=== PATIENT | male | born 1960 | race African-American/Black ===

== ENCOUNTER 2021-09-09 06:52 | Emergency (ER) | payer MEDICAID ==
[~2021-09-09] VITALS: Ht 175.3 cm; Wt 115.9 kg
[2021-09-09 08:56] LABS: CHLORIDE 106 mEq/L (98-107)
[2021-09-09 08:57] LABS: BASOPHILS % 0.8 % (0.0-2.0); EOSINOPHILS % 2.3 % (0.0-5.0); HEMATOCRIT. 44.5 % (42.0-52.0); HEMOGLOBIN. 14.6 g/dL (14.0-18.0); LYMPHOCYTES % 28.9 % (20.0-50.0); MEAN CORPUSCULAR HEMOGLOBIN 27.8 pg (28.0-32.0); MEAN PLATELET VOLUME 10.1 fl (7.4-10.4); MONOCYTES % 7.3 % (2.0-8.0); NEUTROPHILS % 60.7 % (40.0-76.0); PLATELET 117 x1000/uL (130-400); RED BLOOD CELL COUNT 5.24 mill/uL (4.7-6.1); RED CELL DISTRIBUTION WIDTH 16.2 % (11.6-14.6)
[2021-09-09] MEDS ORDERED: TETRACAINE 0.5% OPHTH DROPS 4ML BOTHEYE ONE (09:45)
[2021-09-09] MEDS ORDERED: FLUORESCEIN SODIUM 1MG/STRIP BOTHEYE ONE (09:45)
[2021-09-09] MEDS ORDERED: AMLO5TAB88 MT (10:39)
[2021-09-09] MEDS ORDERED: AMLODIPINE 5MG TABLET PO NR (10:45)
[2021-09-09 11:01] VITALS: BP 198/142
== END 2021-09-09 11:12 | disposition home or self-care (01) ==
LOC: ER 06:52
DX: H25.812 Combined forms of age-related cataract, left eye (principal); I10 Essential (primary) hypertension
CPT/HCPCS: 36415; 71045; 80053; 83880; 84484; 85025; 99285

== ENCOUNTER 2023-02-05 17:10 | Emergency (ER) | payer MEDICAID ==
[~2023-02-05] VITALS: Ht 175.3 cm; Wt 111.1 kg
[~2023-02-05 17:10] MED LIST: AMLO5TAB88 MT
[2023-02-05 17:41] VITALS: BP 238/105; PULSE 84; RESP 16; TEMP 98.5; O2SAT 98
[2023-02-05] MEDS ORDERED: FLUT9.9S BOTHNSTRLS (19:38)
== END 2023-02-05 19:55 | disposition home or self-care (01) ==
LOC: ER 17:10
DX: R05.9 Cough, unspecified (principal); R09.81 Nasal congestion; I10 Essential (primary) hypertension
CPT/HCPCS: 71046; 99283

== ENCOUNTER 2025-04-10 07:52 | Inpatient (IN) | payer MEDICAID, OTHER ==
[2025-04-10] VITALS (7 sets, daily range): BP systolic 152–196; BP diastolic 100–138; PULSE 70–81; RESP 19–33; TEMP 36.5–37.1; O2SAT 95–100
[~2025-04-10] VITALS: Ht 172.7 cm; Wt 108.6 kg
[~2025-04-10 07:52] MED LIST changes: +ASPI-1497 MT; +CLOP-31 MT; +FLUT9.9S BOTHNSTRLS; +LIP40 MT
[2025-04-10 08:11] LABS: BASOPHILS % 0.8 % (0.0-2.0); EOSINOPHILS % 1.7 % (0.0-5.0); HEMATOCRIT. 46.1 % (42.0-52.0); HEMOGLOBIN. 14.4 g/dL (14.0-18.0); LYMPHOCYTES % 16.7 % (20.0-50.0); MEAN PLATELET VOLUME 9.6 fl (7.4-10.4); MONOCYTES % 3.4 % (2.0-8.0); NEUTROPHILS % 77.4 % (40.0-76.0); PLATELET 186 x1000/uL (130-400); RED BLOOD CELL COUNT 5.32 mill/uL (4.7-6.1); RED CELL DISTRIBUTION WIDTH 18.7 % (11.6-14.6)
[2025-04-10] MEDS: NITROGLYCERIN 50MG PREMIX 250 ML IV ONE (08:17)
[2025-04-10 08:39] LABS: CREATININE 1.7 mg/dL (0.6-1.3); UREA NITROGEN BLOOD 14.0 mg/dL (9-23)
[2025-04-10 08:41] LABS: TROPONIN I HIGH SENSITIVITY 35 ng/L (3.0-53)
[2025-04-10] MEDS: FUROSEMIDE 40MG/4ML VIAL IVP ONE (08:46)
[2025-04-10 10:40] LABS: TROPONIN I HIGH SENSITIVITY 43 ng/L (3.0-53)
[2025-04-10] MEDS ORDERED: ACETAMINOPHEN 325MG TABLET PO PRN (11:15)
[2025-04-10] MEDS ORDERED: ONDANSETRON HCL 4MG/2ML INJ IV PRN (11:15)
[2025-04-10] MEDS ORDERED: MORPHINE SULFATE 4 MG/ML INJ (FOR IV/IM USE) IV PRN (11:15)
[2025-04-10] MEDS ORDERED: MAGNESIUM/ALUMINUM HYDROXIDE/SIMETHICONE 30ML UDC PO PRN (11:15)
[2025-04-10] MEDS ORDERED: ENOXAPARIN 40MG/0.4ML SYR SUBCUT SCH (11:15)
[2025-04-10] MEDS: FUROSEMIDE 40MG/4ML VIAL IVP SCH (11:26)
[2025-04-10] MEDS ORDERED: NALOXONE HCL 0.4MG/ML VIAL IV PRN (11:30)
[2025-04-10] MEDS: ENOXAPARIN 30MG/0.3ML SYR SUBCUT SCH (11:36)
[2025-04-10] MEDS: CLOPIDOGREL 75MG TABLET PO SCH (11:56)
[2025-04-10] MEDS: ASPIRIN 81MG EC TABLET PO SCH (11:56)
[2025-04-10] MEDS: LOSARTAN 50 MG TABLET PO SCH (11:56)
[2025-04-10] MEDS: PANTOPRAZOLE SODIUM 40 MG/VIAL IV SCH (11:57)
[2025-04-10 12:17] LABS: CLARITY URINE CLEAR (CLEAR); COLOR URINE YELLOW (YELLOW); GLUCOSE URINE NEGATIVE (NEGATIVE); KETONES URINE NEGATIVE (NEGATIVE); LEUKOCYTE ESTERASE URINE NEGATIVE (NEGATIVE); NITRITE URINE NEGATIVE (NEGATIVE); OCCULT BLOOD URINE NEGATIVE (NEGATIVE); PH URINE 7.5 (4.5-8.0); PROTEIN URINE NEGATIVE (NEGATIVE); SPECIFIC GRAVITY URINE 1.005 (1.005-1.030); UROBILINOGEN URINE 0.2 E.U./dL (0.2-1.0)
[2025-04-10 12:40] LABS: *AMPHETAMINES SCREEN URINE NEGATIVE (NEGATIVE); *BARBITURATES SCREEN URINE NEGATIVE (NEGATIVE); *BENZODIAZEPINES SCREEN URINE NEGATIVE (NEGATIVE)
[2025-04-10 12:41] LABS: *COCAINE SCREEN URINE NEGATIVE (NEGATIVE); CANNABINOID URINE SCREEN NEGATIVE (NEGATIVE); ECSTASY MDMA SCREEN URINE NEGATIVE (NEGATIVE); METHADONE URINE SCREEN NEGATIVE (NEGATIVE); OPIATES URINE SCREEN NEGATIVE (NEGATIVE); PHENCYCLIDINE URINE SCREEN NEGATIVE (NEGATIVE)
[2025-04-10] MEDS: CLONIDINE 0.1MG TABLET PO PRN (14:19)
[2025-04-10] MEDS: HYDROCODONE/ACETAMINOPHEN 5/325MG TABLET PO PRN (15:31)
[2025-04-10] MEDS ORDERED: HYDRALAZINE 20MG/ML VIAL IV PRN (16:30)
[2025-04-10] MEDS ORDERED: ENALAPRIL 2.5MG/2ML VIAL 2ML IV PRN (17:45)
[2025-04-10] MEDS: ISOSORBIDE MONONITRATE 60MG TABLET SR 24HR PO SCH (18:36)
[2025-04-10 19:48] LABS: TROPONIN I HIGH SENSITIVITY 49 ng/L (3.0-53)
[2025-04-10] MEDS: IPRATROPIUM/ALBUTEROL 0.5-3(2.5)MG/3ML NEB NEB SCH (20:55)
[2025-04-10] MEDS ORDERED: ZOLPIDEM TARTRATE 5MG TABLET PO PRN (21:00)
[2025-04-10] MEDS: ATORVASTATIN CALCIUM 40MG TABLET PO SCH (21:04)
[2025-04-10] MEDS: HYDRALAZINE HCL 25MG TABLET PO SCH (21:04)
[2025-04-11] VITALS (15 sets, daily range): BP systolic 133–168; BP diastolic 86–124; PULSE 69–89; RESP 14–30; TEMP 36.4–36.8; O2SAT 92–100
[2025-04-11] MEDS: ENALAPRIL 1.25MG/ML VIAL 1ML IV PRN (02:04)
[2025-04-11 05:46] LABS: TROPONIN I HIGH SENSITIVITY 48 ng/L (3.0-53)
[2025-04-11 05:49] LABS: CREATININE 1.8 mg/dL (0.6-1.3); UREA NITROGEN BLOOD 17.0 mg/dL (9-23)
[2025-04-11 06:03] LABS: BASOPHILS % 0.6 % (0.0-2.0); EOSINOPHILS % 1.4 % (0.0-5.0); HEMATOCRIT. 40.5 % (42.0-52.0); HEMOGLOBIN. 13.1 g/dL (14.0-18.0); LYMPHOCYTES % 14.8 % (20.0-50.0); MEAN PLATELET VOLUME 9.8 fl (7.4-10.4); MONOCYTES % 8.6 % (2.0-8.0); NEUTROPHILS % 74.6 % (40.0-76.0); PLATELET 170 x1000/uL (130-400); RED BLOOD CELL COUNT 4.74 mill/uL (4.7-6.1); RED CELL DISTRIBUTION WIDTH 18.4 % (11.6-14.6)
[2025-04-11] MEDS: METOPROLOL SUCCINATE 50MG ER TABLET PO SCH (11:26)
[2025-04-11] MEDS: ISOSORBIDE MONONITRATE 30MG TABLET SR 24HR PO SCH (11:26)
[2025-04-12] VITALS (13 sets, daily range): BP systolic 122–161; BP diastolic 69–116; PULSE 65–80; RESP 14–25; TEMP 36.2–36.9; O2SAT 88–99
[2025-04-12 05:39] LABS: CREATININE 2.0 mg/dL (0.6-1.3); UREA NITROGEN BLOOD 18.0 mg/dL (9-23)
[2025-04-12 06:12] LABS: BASOPHILS % 0.6 % (0.0-2.0); EOSINOPHILS % 2.9 % (0.0-5.0); HEMATOCRIT. 39.5 % (42.0-52.0); HEMOGLOBIN. 12.9 g/dL (14.0-18.0); LYMPHOCYTES % 17.9 % (20.0-50.0); MEAN PLATELET VOLUME 9.5 fl (7.4-10.4); MONOCYTES % 13.6 % (2.0-8.0); NEUTROPHILS % 65.0 % (40.0-76.0); PLATELET 180 x1000/uL (130-400); RED BLOOD CELL COUNT 4.64 mill/uL (4.7-6.1); RED CELL DISTRIBUTION WIDTH 18.0 % (11.6-14.6)
[2025-04-12] MEDS: METOPROLOL SUCCINATE 25MG ER TABLET PO SCH (12:51)
[2025-04-13] VITALS (12 sets, daily range): BP systolic 111–146; BP diastolic 74–101; PULSE 65–79; RESP 14–26; TEMP 36.4–36.7; O2SAT 90–98
[2025-04-13] MEDS: METOPROLOL SUCCINATE 50MG ER TABLET PO SCH (09:28)
[2025-04-13] MEDS ORDERED: ASPI-1406 PO (09:40)
[2025-04-13] MEDS ORDERED: HYDR25TA78 PO (09:40)
[2025-04-13] MEDS ORDERED: ISOS30TA91 PO (09:40)
[2025-04-13] MEDS ORDERED: CLOP-31 PO (09:40)
[2025-04-13] MEDS ORDERED: METO-385 PO (09:40)
[2025-04-13] MEDS ORDERED: LIP40 PO (09:40)
[2025-04-13] MEDS ORDERED: FURO-151 MT (09:40)
[2025-04-13 11:07] LABS: BASOPHILS % 0.8 % (0.0-2.0); EOSINOPHILS % 3.3 % (0.0-5.0); HEMATOCRIT. 44.1 % (42.0-52.0); HEMOGLOBIN. 14.2 g/dL (14.0-18.0); LYMPHOCYTES % 24.3 % (20.0-50.0); MEAN PLATELET VOLUME 9.2 fl (7.4-10.4); MONOCYTES % 6.5 % (2.0-8.0); NEUTROPHILS % 65.1 % (40.0-76.0); PLATELET 185 x1000/uL (130-400); RED BLOOD CELL COUNT 5.16 mill/uL (4.7-6.1); RED CELL DISTRIBUTION WIDTH 18.2 % (11.6-14.6)
[2025-04-13 11:23] LABS: CREATININE 1.9 mg/dL (0.6-1.3); UREA NITROGEN BLOOD 20.0 mg/dL (9-23)
[2025-04-14] VITALS (10 sets, daily range): BP systolic 130–158; BP diastolic 79–98; PULSE 62–75; RESP 14–29; TEMP 36.6–36.9; O2SAT 91–99
[2025-04-14] MEDS: FUROSEMIDE 40MG/4ML VIAL IVP SCH (09:50)
== END 2025-04-14 17:00 | disposition home or self-care (01) | DRG 291 ==
LOC: ER 07:52 → 5EST 09:17 → EDBEDREQSVC 09:20 → EDBEDREQ 09:20 → EDBEDREQTM 09:20 → EDBEDREQSVC 12:17 → ENRESERV 12:56
PROVIDERS: ADMIT Internal Medicine; ATTEND Internal Medicine
PROC: 5A09357 Assistance with Respiratory Ventilation, Less than 24 Consecutive Hours, Continuous Positive Airway Pressure (ICD-10-PCS; principal; 2025-04-10)
DX: I13.0 Hypertensive heart and chronic kidney disease with heart failure and stage 1 through stage 4 chronic kidney disease, or unspecified chronic kidney disease (principal); I50.23 Acute on chronic systolic (congestive) heart failure; J96.01 Acute respiratory failure with hypoxia; N17.9 Acute kidney failure, unspecified; I16.1 Hypertensive emergency; N18.9 Chronic kidney disease, unspecified; E11.22 Type 2 diabetes mellitus with diabetic chronic kidney disease; E66.9 Obesity, unspecified; I25.10 Atherosclerotic heart disease of native coronary artery without angina pectoris; E78.5 Hyperlipidemia, unspecified; I42.0 Dilated cardiomyopathy; G47.33 Obstructive sleep apnea (adult) (pediatric); I25.2 Old myocardial infarction; Z91.148 Patient's other noncompliance with medication regimen for other reason; Z95.5 Presence of coronary angioplasty implant and graft; Z79.899 Other long term (current) drug therapy; Z68.36 Body mass index [BMI] 36.0-36.9, adult
CPT/HCPCS: 36415; 71045; 76604; 80048; 80305; 81003; 84443; 84484; 85025; 93005; 93306; 93880; 93970; 94070; 94640; 94660; 94664; 98960; 99291; A4606; J0360; J1650; J1938; J2470; J3490